=== PATIENT | female | born 1965 | race Caucasian/White ===

== ENCOUNTER 2021-04-08 16:36 | Emergency (ER) | payer MEDICAID ==
[~2021-04-08] VITALS: Ht 149.9 cm; Wt 68.9 kg
[~2021-04-08 16:36] MED LIST: ASCO1CAP75 PO; ASPI-1884 PO; CEPH250C16 PO; GABA300C PO; GLIP10TE PO; IBUP200C97 PO; LISI5TAB18 PO; METF850T PO; METO-485 PO; SIMV20TA1 PO; SITA50TA3 PO
--- NOTE | 2021-04-08 16:36 | NUR ---
Patient BIBA BLS, transferred to bed 10. RN evaluating the patient at bedside.
[2021-04-08 16:54] VITALS: BP 186/84
[2021-04-08] MEDS ORDERED: ONDANSETRON 4 MG/2 ML VIAL IVP ONE (17:00)
[2021-04-08] MEDS ORDERED: DICYCLOMINE HCL LIQUID 20 MG, ALUMINUM HYD/MAG/SIMETHICONE 30 ML, LIDOCAINE VISCOUS 2% ... PO ONE ×3 (17:00)
[2021-04-08] MEDS ORDERED: NACL 0.9% 1,000 ML IV ONE ×2 (17:00→18:10)
[2021-04-08] MEDS ORDERED: KETOROLAC 15 MG/ML VIAL IVP ONE (17:00)
--- NOTE | 2021-04-08 17:02 | NUR ---
56 Y/O FEMALE BIBA C/O EPIGASTRIC PAIN X2DAYS WITH DIARRHEA AND GUARDING ABDOMEN. PT STATES PAIN 9/10 DESCRIBES SHARP BOWEL SOUNDS ACTIVE X4. LAST BM 04/08/21. PT STATES SHE HAS NOT SEEN MD FOR PRESCRIPTIONS FOR DM AND TAKES A PILL SHE TOOK FROM SOMEONE SHE BUYS FROM IN A STORE, UNABLE TO RECALL NAME. PER EMT SBP IN 213, ON ARRIVAL BS 492. PMH: SUKHI RADFORD
[2021-04-08] MEDS ORDERED: LIDOCAINE VISCOUS 2% 20 ML UDC ONE (17:19)
[2021-04-08] MEDS ORDERED: ALUMINUM HYD/MAG/SIMETHICONE 30 ML UDC ONE (17:20)
[2021-04-08] MEDS ORDERED: DICYCLOMINE HCL LIQUID 10 MG/5 ML UDC ONE (17:20)
[2021-04-08 17:51] LABS: BASOPHILS % (AUTO) 0.6 % (0.0-2.0); EOSINOPHILS # (AUTO) 0.1 K/uL (0-0.4); HEMATOCRIT 29.9 % (36-48); HEMOGLOBIN 10.4 g/dL (12.0-16.0); LYMPHOCYTES # (AUTO) 2.6 K/uL (2.5-16.5); MEAN CORPUSCULAR HEMOGLOBIN 28 pg (27-31); MEAN CORPUSCULAR HGB CONC 35 g/dL (33-37); MEAN CORPUSCULAR VOLUME 80.1 fL (80-94); MONOCYTES # (AUTO) 0.4 K/uL (0.8-1.0); MONOCYTES % (AUTO) 5.6 % (1.7-9.3); NEUTROPHILS # (AUTO) 3.9 K/uL (1.8-7.7); NEUTROPHILS % (AUTO) 54.8 % (42.2-75.2); PLATELET COUNT (AUTO) 327 K/uL (140-450); RED BLOOD CELL COUNT(AUTO) 3.73 MIL/uL (4.20-5.40); RED CELL DISTRIBUTION WIDTH 12.7 % (11.6-13.7); WHITE BLOOD COUNT (AUTO) 7.1 K/uL (4.8-10.8)
--- NOTE | 2021-04-08 17:54 | NUR ---
Pt ambulated to restroom for UA collection.
--- NOTE | 2021-04-08 17:58 | NUR ---
maral.Pt ambulated to ER bed 10 with a steady
[2021-04-08 18:01] LABS: ALBUMIN 1.3 g/dL (3.4-5.0); CARBON DIOXIDE 25.1 mmol/L (21-32); CREATININE 1.6 mg/dL (0.6-1.3); POTASSIUM 4.1 mmol/L (3.5-5.1); TOTAL BILIRUBIN 0.2 mg/dL (0.0-1.0)
--- NOTE | 2021-04-08 18:13 | NUR ---
PT HOB ELEVATED, BP 208/81 MD MADE AWARE. WILL WAIT FOR ORDERS AND CONTINUE TO MONITOR.
--- NOTE | 2021-04-08 18:16 | NUR ---
US tech at bedside.
[2021-04-08 19:01] LABS: BILIRUBIN,URINE NEGATIVE (NEGATIVE); BLOOD, URINE 1+ (NEGATIVE); LEUKOCYTE ESTERASE ,URINE NEGATIVE (NEGATIVE); NITRITE, URINE NEGATIVE (NEGATIVE); UGLUCOSE 3+ (NEGATIVE)
[2021-04-08 19:06] LABS: APPEARANCE,URINE CLEAR (CLEAR)
[2021-04-08 19:07] LABS: COLOR,URINE YELLOW (YELLOW)
[2021-04-08 19:13] LABS: RBC,URINE 0-5 /HPF (0-5); WBC,URINE 0-5 /HPF (0-5)
--- NOTE | 2021-04-08 19:14 | NUR ---
REPORT GIVEN TO CARLENE ESTEBAN. TRANSFER OF CARE GIVEN
--- NOTE | 2021-04-08 19:35 | NUR ---
BP 201/92. Dr. Le made aware.
[2021-04-08] MEDS ORDERED: hydrALAZINE 20 MG/ML VIAL ONE (19:38)
[2021-04-08] MEDS ORDERED: hydrALAZINE 20 MG/ML VIAL IVP ONE (19:40)
[2021-04-08] MEDS ORDERED: METF-350 PO (20:13)
[2021-04-08] MEDS ORDERED: ONDA-24 SL (20:13)
[2021-04-08] MEDS ORDERED: AMLO-271 PO (20:13)
[2021-04-08 20:24] VITALS: BP 157/70
--- NOTE | 2021-04-08 20:28 | NUR ---
d/c with VSS. d/c education given. opportunity to ask questions given and answered. rx of zofra, metformin and zofran.
== END 2021-04-08 20:28 | disposition home or self-care (01) ==
LOC: MED 16:36
DX: R11.2 Nausea with vomiting, unspecified (principal); E11.65 Type 2 diabetes mellitus with hyperglycemia; I10 Essential (primary) hypertension; Z79.84 Long term (current) use of oral hypoglycemic drugs; Z79.82 Long term (current) use of aspirin; Z79.899 Other long term (current) drug therapy
CPT/HCPCS: 36415; 76705; 80053; 81001; 83690; 85025; 96361; 96374; 96375; 99284; J0360; J1885; J2405; J7030

== ENCOUNTER 2021-08-14 16:55 | Inpatient (IN) | payer MEDICAID ==
[~2021-08-14] VITALS: Ht 143.5 cm; Wt 55.8 kg
[2021-08-14] MEDS: NACL 0.9% 1,000 ML IV SCH (01:40)
[2021-08-14] MEDS: BLOOD GLUCOSE MONITORING 1 DEV DEV FS SCH (01:50)
[~2021-08-14 16:55] MED LIST changes: +AMLO-271 PO; -ASCO1CAP75 PO; +ASPI-1749 PO; -ASPI-1884 PO; -CEPH250C16 PO; -GABA300C PO; -GLIP10TE PO; -IBUP200C97 PO; -LISI5TAB18 PO; +METF-350 PO; -METF850T PO; -METO-485 PO; +ONDA-188 SL; -SIMV20TA1 PO; -SITA50TA3 PO
[2021-08-14 17:17] VITALS: BP 132/69
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
[2021-08-14] MEDS ORDERED: PIPERACILLIN/TAZOBACTAM 3.375 GM in DEXTROSE 5% 50 ML IV ONE (18:25)
[2021-08-14] MEDS ORDERED: KETOROLAC 15 MG/ML VIAL IVP ONE (18:25)
[2021-08-14] MEDS ORDERED: PIPERACILLIN/TAZOBACTAM 3.375 GM VIAL IV ONE (18:47)
[2021-08-14 18:48] LABS: BASOPHILS # (AUTO) 0.1 K/uL (0.00-0.22); BASOPHILS % (AUTO) 0.5 % (0.0-2.0); EOSINOPHILS # (AUTO) 0.1 K/uL (0-0.4); EOSINOPHILS % (AUTO) 0.8 % (0.0-4.0); HEMATOCRIT 24.6 % (36-48); HEMOGLOBIN 8.2 g/dL (12.0-16.0); LYMPHOCYTES # (AUTO) 1.7 K/uL (2.5-16.5); LYMPHOCYTES % (AUTO) 13.3 % (20.5-51.1); MEAN CORPUSCULAR HEMOGLOBIN 26 pg (27-31); MEAN CORPUSCULAR HGB CONC 34 g/dL (33-37); MEAN CORPUSCULAR VOLUME 77.7 fL (80-94); MONOCYTES # (AUTO) 0.7 K/uL (0.8-1.0); MONOCYTES % (AUTO) 5.4 % (1.7-9.3); NEUTROPHILS # (AUTO) 10.1 K/uL (1.8-7.7); PLATELET COUNT (AUTO) 459 K/uL (140-450); RED BLOOD CELL COUNT(AUTO) 3.16 MIL/uL (4.20-5.40); RED CELL DISTRIBUTION WIDTH 13.8 % (11.6-13.7); WHITE BLOOD COUNT (AUTO) 12.7 K/uL (4.8-10.8)
[2021-08-14 18:57] LABS: ANION GAP 11.8 (8-16); CARBON DIOXIDE 21.3 mmol/L (21-32); CREATININE 2.3 mg/dL (0.6-1.3); POTASSIUM 4.1 mmol/L (3.5-5.1)
--- NOTE | 2021-08-14 19:12 | NUR ---
CULTURE OF TOE COLLECTED AND WALKED TO LAB.
--- NOTE | 2021-08-14 19:29 | NUR ---
Pt report given to MARCELA BLAND. Transfer of care at this time.
--- NOTE | 2021-08-14 19:31 | NUR ---
REPORT GIVEN TO CARLENE MEDRANO FOR TRANSFER OF CARE
[2021-08-14] MEDS ORDERED: DEXTROSE 50% 50 ML SYR IVP PRN (20:10)
[2021-08-14] MEDS ORDERED: ACETAMINOPHEN 325 MG TAB PO PRN (20:10)
[2021-08-14] MEDS ORDERED: POTASSIUM CHLORIDE 10 MEQ TABER PO PRN (20:10)
[2021-08-14] MEDS ORDERED: DOCUSATE SODIUM 100 MG GELCAP PO PRN (20:10)
[2021-08-14] MEDS ORDERED: MAGNESIUM OXIDE 400 MG TAB PO PRN (20:10)
[2021-08-14] MEDS ORDERED: MORPHINE SULFATE 2 MG/ML SYR IVP PRN (20:10)
[2021-08-14] MEDS ORDERED: SODIUM PHOS / POTASSIUM PHOS 1 PKT PDR PO PRN (20:10)
[2021-08-14] MEDS ORDERED: HYDROcodone/APAP 5/325 MG 1 TAB TAB PO PRN (20:10)
[2021-08-14] MEDS ORDERED: ONDANSETRON 4 MG/2 ML VIAL IM/IVP PRN (20:10)
--- NOTE | 2021-08-14 20:20 | NUR ---
XRAY AT BEDSIDE.
[2021-08-14 20:45] LABS: MAGNESIUM 2.2 mg/dL (1.8-2.4); PHOSPHORUS 3.4 mg/dL (2.5-4.9)
[2021-08-15] MEDS: INSULIN LISPRO SLIDING SCALE 100 UNITS/ML VIAL SUBQ PRN ×4 (02:06→20:21)
[2021-08-15 05:33] LABS: BASOPHILS % (AUTO) 0.3 % (0.0-2.0); EOSINOPHILS # (AUTO) 0.2 K/uL (0-0.4); EOSINOPHILS % (AUTO) 1.9 % (0.0-4.0); HEMATOCRIT 22.1 % (36-48); HEMOGLOBIN 7.6 g/dL (12.0-16.0); LYMPHOCYTES # (AUTO) 2.6 K/uL (2.5-16.5); LYMPHOCYTES % (AUTO) 25.6 % (20.5-51.1); MEAN CORPUSCULAR HEMOGLOBIN 27 pg (27-31); MEAN CORPUSCULAR HGB CONC 35 g/dL (33-37); MEAN CORPUSCULAR VOLUME 78.2 fL (80-94); MONOCYTES # (AUTO) 0.9 K/uL (0.8-1.0); MONOCYTES % (AUTO) 8.9 % (1.7-9.3); NEUTROPHILS # (AUTO) 6.5 K/uL (1.8-7.7); NEUTROPHILS % (AUTO) 63.3 % (42.2-75.2); PLATELET COUNT (AUTO) 397 K/uL (140-450); RED BLOOD CELL COUNT(AUTO) 2.83 MIL/uL (4.20-5.40); RED CELL DISTRIBUTION WIDTH 13.8 % (11.6-13.7); WHITE BLOOD COUNT (AUTO) 10.2 K/uL (4.8-10.8)
[2021-08-15 05:38] LABS: ANION GAP 12.6 (8-16); CARBON DIOXIDE 20.5 mmol/L (21-32); CREATININE 2.2 mg/dL (0.6-1.3); POTASSIUM 4.1 mmol/L (3.5-5.1)
--- NOTE | 2021-08-15 06:50 | NUR ---
RECEIVED REPORT FROM KAREN CONCEPCION AND MARCELA JONESN, TRANSFER OF CARE AT THIS TIME
--- NOTE | 2021-08-15 07:00 | NUR ---
PT RESTING IN BED WITH EVEN AND UNLABORED RESPIRATIONS. A/O X4/GCS 15. PT DENIES PAIN AT THIS TIME. DENIES NUMBNESS. + FULL SENSATION. PT REPORTS PERIODS OF TINGLING. PT ON DAIRY DEPARTMENT MANAGER, VSS.
[2021-08-15] MEDS: BLOOD GLUCOSE MONITORING 1 DEV DEV FS SCH ×4 (07:20→20:21)
--- NOTE | 2021-08-15 08:16 | NUR ---
REPORT GIVEN TO CARY RN FOR ADMISSION TO [facility], ETA 20 MINS.
[2021-08-15] MEDS ORDERED: hydrALAZINE 25 MG TAB PO PRN (08:35)
--- NOTE | 2021-08-15 08:48 | NUR ---
Patient will be admitted to care of [facility]. Admited to TELEMETRY. Will go to room 125B. Belongings list completed. Report to CARY CONCEPCION.
[2021-08-15] MEDS ORDERED: amLODIPine 5 MG TAB PO SCH (09:00)
[2021-08-15] MEDS: PANTOPRAZOLE 40 MG TABEC PO SCH (09:18)
[2021-08-15] MEDS: ASPIRIN 81 MG TAB.CHEW PO SCH (09:19)
[2021-08-15] MEDS: NACL 0.9% 1,000 ML IV SCH ×2 (09:19→17:57)
--- NOTE | 2021-08-15 09:25 | NUR ---
SWETHAVE PATIENT FROM ER, PT WAS ADMITTED DUE TO RIGHT FOOT PAIN, DX WIT R FOOT CELLULITIS DUE TO DIABETES, PT IS AMBULATORY AX4 ON ROOM AIR, S.R PATIENT HAS AN IV ON RIGHT AC 20G INTACT PATENT ASYMPTOMATIC, RUNNING NS 125ML/H PATIENT DENIES PAIN, ATE BREAKFAST, BREATHING EVEN UNLABORED, GOT MORNING MEDICATION TOLERATED WELL, NO SOD NOTED, PT VITAL SIGNS 160/76 HERAT RATE 100 SAT 98% BREATHING 20 .PATIENT HAS DIABETIC ULCER ClOSED ON HER RIGHT FOOT, ALL SAFETY MEASURES ON PLACE CALLS LIGHT WITHIN REACH
[2021-08-15 09:43] LABS: APPEARANCE,URINE CLEAR (CLEAR); COLOR,URINE YELLOW (YELLOW)
[2021-08-15 09:44] LABS: BILIRUBIN,URINE NEGATIVE (NEGATIVE); BLOOD, URINE NEGATIVE (NEGATIVE); NITRITE, URINE NEGATIVE (NEGATIVE); UGLUCOSE NEGATIVE (NEGATIVE)
[2021-08-15 09:46] LABS: RBC,URINE 0-5 /HPF (0-5)
[2021-08-15 09:48] LABS: LEUKOCYTE ESTERASE ,URINE 1+ (NEGATIVE)
[2021-08-15 10:52] VITALS: BP 160/76
--- NOTE | 2021-08-15 12:20 | NUR ---
PT IN BED NO COMPLAINS NO SOD NOTED, ALL SAFETY MEASURES ON PLACE CALLS LIGHT WITHIN REACH
[2021-08-15 12:31] LABS: CREATININE,URINE RANDOM 36 mg/dL (30-125); URINE SODIUM, RANDOM 53 mmol/l (40-220)
--- NOTE | 2021-08-15 12:56 | NUR ---
DC PLANNIN YRS OLD FEMALE PATIENT WAS ADMITTED FROM HOME WITH A DX OF RIGHT FOOT CELLULITIS, DM ULCER. PATIENT HAS A HX OF DM AND HTN. X-RAY RT TOE NO CORTICAL EROSION ARE SEEN SUGGESTED ADVANCED OSTEOMYELITIS. NO DVT, RENAL US SHOWED NO HYDRONEPHROSIS. ADMINISTERED IVF, IV ABX ZOSYN AND CONTINUED HOME MEDS. CONSULTED WITH DR SANDERS PODIATRY AND SORT MANAGER. DC PLAN TO GO HOME WHEN STABLE CM TO FOLLOW
--- NOTE | 2021-08-15 14:15 | NUR ---
PT IN BED NO COMPLAINS NO SOD NOTED, ALL SAFETY MEASURES ON PLACE CALLS LIGHT WITHIN REACH
[2021-08-15 16:00] VITALS: BP 158/71
--- NOTE | 2021-08-15 16:00 | NUR ---
PT IN BED NO COMPLAINS NO SOD NOTED, ALL SAFETY MEASURES ON PLACE CALLS LIGHT WITHI REACH
--- NOTE | 2021-08-15 16:44 | NUR ---
PATIENT HAS BEEN SCREENED AND CATEGORIZED MODERATE NUTRITION RISK. PATIENT WILL BE SEEN WITHIN 3-5 DAYS OF ADMISSION. 08/17/21 08/19/[address]
--- NOTE | 2021-08-15 17:50 | NUR ---
PT IN BED NO COMPLAINS NO SOD NOTED, ALL SAFETY MEASURES ON PLACE CALLS LIGHT WITHI REAC
--- NOTE | 2021-08-15 19:32 | NUR ---
FULL BEDSIDE REPORT GIVEN TO DIRECTOR INSTRUCTIONAL MATERIAL NURSE
--- NOTE | 2021-08-15 19:35 | NUR ---
RECEIVED PT SITTING ON SIDE OF BED EATING DINNER, AAOX4, ABLE TO MAKE NEEDS KNOWN, DENIES ANY PAIN, IVF INFUSING WELL, DIABETIC ULCER TO RT FOURTH TOE, [place], NO DRAINAGE NOTED, PLAN OF CARE DISCUSSED, SAFETY MEASURES IN PLACE, CALL LIGHT WITHIN REACH.
[2021-08-15 20:00] VITALS: BP 135/78
--- NOTE | 2021-08-15 20:30 | NUR ---
PT AMBULATED TO BR WITH STEADY GAIT, VOIDED FREELY, BLOOD SUGAR CHECKED DONE WITH 214 RESULT, COVERAGE GIVEN, BEDTIME SNACK PROVIDED, ALL NEEDS ATTENDED.
--- NOTE | 2021-08-16 03:50 | NUR ---
PT SLEEPING, EASILY AROUSABLE, VITAL SIGNS STABLE, DENIES ANY PAIN, IVF INFUSING WELL, MONITORED CLOSELY.
[2021-08-16] MEDS: NACL 0.9% 1,000 ML IV SCH (03:53)
[2021-08-16 04:00] VITALS: BP 134/60
--- NOTE | 2021-08-16 06:30 | NUR ---
BLOOD SUGAR CHECKED WITH 123 RESULT, DENIES ANY PAIN, MONITORED CLOSELY.
[2021-08-16 07:03] LABS: BASOPHILS % (AUTO) 0.4 % (0.0-2.0); EOSINOPHILS # (AUTO) 0.2 K/uL (0-0.4); EOSINOPHILS % (AUTO) 1.4 % (0.0-4.0); HEMATOCRIT 21.1 % (36-48); LYMPHOCYTES # (AUTO) 2.6 K/uL (2.5-16.5); LYMPHOCYTES % (AUTO) 20.7 % (20.5-51.1); MEAN CORPUSCULAR HEMOGLOBIN 26 pg (27-31); MEAN CORPUSCULAR HGB CONC 33 g/dL (33-37); MEAN CORPUSCULAR VOLUME 78.7 fL (80-94); MONOCYTES # (AUTO) 1.1 K/uL (0.8-1.0); MONOCYTES % (AUTO) 8.7 % (1.7-9.3); NEUTROPHILS # (AUTO) 8.7 K/uL (1.8-7.7); NEUTROPHILS % (AUTO) 68.8 % (42.2-75.2); PLATELET COUNT (AUTO) 387 K/uL (140-450); RED BLOOD CELL COUNT(AUTO) 2.68 MIL/uL (4.20-5.40); RED CELL DISTRIBUTION WIDTH 13.9 % (11.6-13.7); WHITE BLOOD COUNT (AUTO) 12.6 K/uL (4.8-10.8)
--- NOTE | 2021-08-16 07:25 | NUR ---
RECEIVED CALL FROM LAB. HEMOGLOBIN AT [address] ISAIAS DIETZ. DR ORDERED [address] ORDER, ONLY TRANSFUSE 1 AND KEEP OTHER ON HOLD. CONSENT FORM PRINTED OUT AND IN CHART.
[2021-08-16 07:26] LABS: ANION GAP 12.9 (8-16); CARBON DIOXIDE 18.6 mmol/L (21-32); CREATININE 2.4 mg/dL (0.6-1.3); POTASSIUM 4.5 mmol/L (3.5-5.1)
[2021-08-16] MEDS: BLOOD GLUCOSE MONITORING 1 DEV DEV FS SCH ×4 (07:35→21:45)
--- NOTE | 2021-08-16 07:40 | NUR ---
PT AWAKE, NO SIGNS OF DISTRESS, BEDSIDE REPORT GIVEN TO EDWINA MAZARIEGOS FOR CONTINUITY OF CARE.
--- NOTE | 2021-08-16 07:41 | NUR ---
RECEIVED REPORT FROM UNDERWRITING SUPPORT SPECIALIST NURSE FOR CONTINUITY OF CARE. PATIENT IN BED AT THIS TIME. RESPIRATIONS ARE EVEN AND UNLABORED. NO SIGNS OF DISTRESS NOTED. WILL CONTINUE TO MONITOR. ALL SAFETY MEASURES IN PLACE. CALL LIGHT WITHIN REACH.
[2021-08-16] MEDS: PANTOPRAZOLE 40 MG TABEC PO SCH (08:45)
[2021-08-16] MEDS: ASPIRIN 81 MG TAB.CHEW PO SCH (08:52)
[2021-08-16] MEDS: SODIUM FERRIC GLUCONATE 125 MG in NACL 0.9% 100 ML IV SCH (09:00)
[2021-08-16] MEDS: NIFEdipine 30 MG TABER PO SCH (09:00)
--- NOTE | 2021-08-16 10:40 | NUR ---
FERRLECIT 125MH IN NACL STARTED. WILL MONITOR FOR ADVERSE EFFECTS.
--- NOTE | 2021-08-16 10:54 | NUR ---
15 MIN INTO FERRLECIT INFUSION, NO ADVERSE EFFECTS NOTED. NO COMPLAINTS OF PAIN OR DISCOMFORT. WILL CONTINUE TO MONITOR.
--- NOTE | 2021-08-16 11:09 | NUR ---
30 MINUTES INTO FERRLECIT INFUSION. NO ADVERSE EFFECTS NOTED. NO COMPLAINTS OF PAIN OR DISCOMFORT. WILL CONTINUE TO MONITOR.
--- NOTE | 2021-08-16 11:24 | NUR ---
45 MINUTES INTO FERRLECIT INFUSION. NO ADVERSE EFFECTS NOTED. NO COMPLAINTS OF PAIN OR DISCOMFORT. DR. ISAIAS DIETZ AT BEDSIDE. INFORMED PATIENT ABOUT BLOOD TRANSFUSION AND REASON TRANSFUSION IS NEEDED. PATIENT STATED AN UNDERSTANDING OF ALL INFORMATION PROVIDED. WILL CONTINUE TO MONITOR.
--- NOTE | 2021-08-16 11:39 | NUR ---
JOSE RIT COMPLETED. NO ADVERSE AFFECTS NOTED. NO COMPLAINTS OF PAIN OR DISCOMFORT. WILL CONTINUE TO MONITOR.
[2021-08-16 12:00] VITALS: BP 136/60
--- NOTE | 2021-08-16 14:08 | NUR ---
08/16/21 RD INITIAL ASSESSMENT COMPLETED PLEASE REFER TO NUTRITION ASSESSMENT UNDER CARE ACTIVITY FOR ESTIMATED NUTRITIONAL NEEDS. RD RECOMMENDATIONS: 1. RECOMMEND ADDING LOW NA DIET [facility] 60 GM DIET D/T PT WITH HTN AND ELEVATED BP. 2. DM DIET EDUCATION PROVIDED TO PT. 3. RD WILL F/U 7 DAYS; LOW RISK. KELLEY SINGH RD
--- NOTE | 2021-08-16 14:20 | NUR ---
BLOOD TRANSFUSION STARTED. INITIAL VS: 140/80, 89, RR 20, O2 99%, TEMP: 97.8. WILL CONTINUE TO MONITOR.
--- NOTE | 2021-08-16 14:35 | NUR ---
15 MIN AFTER TRANSFUSION START. NO ADVERSE REACTIONS NOTED.NO COMPLAINTS OF PAIN OR DISCOMFORT. VS: 152/75, 97.8, 89, RR 20, O2 99%. WILL CONTINUE TO MONITOR.
--- NOTE | 2021-08-16 15:05 | NUR ---
30 MIN AFTER START OF TRANSFUSION. NO COMPLAINTS OF PAIN OR DISCOMFORT. NO ADVERSE REACTIONS NOTED. VS: 150/82, RR18, HR 87, TEMP 98.0, O2 SAT 98%. WILL CONTINUE TO MONITOR.
--- NOTE | 2021-08-16 16:05 | NUR ---
1 HOUR AFTER TRANSFUSION COMPLETE. NO COMPLAINTS OF PAIN OR DISCOMFORT. NO ADVERSE REACTIONS NOTED. WILL CONTINUE TO MONITOR.
[2021-08-16] MEDS ORDERED: VANCOMYCIN PER PHARMACY MC PRN (16:15)
[2021-08-16] MEDS ORDERED: VANCOMYCIN HCL 750 MG in DEXTROSE 5% 250 ML IV SCH (17:00)
[2021-08-16] MEDS: INSULIN LISPRO SLIDING SCALE 100 UNITS/ML VIAL SUBQ PRN (17:28)
--- NOTE | 2021-08-16 18:00 | NUR ---
ORDER PUT IN FOR ZOSYN. ZOSYN NOT IN MED ROOM. ATTEMPTED TO CALL PHARMACY, NO ANSWER. WILL ENDORSE TO CORDWOOD CUTTER.
--- NOTE | 2021-08-16 19:10 | NUR ---
ENDORSED PATIENT TO CONTACT ACID PLANT OPERATOR HELPER NURSE FOR CONTINUITY OF CARE. PATIENT STABLE.
--- NOTE | 2021-08-16 19:11 | NUR ---
RECEIVED ENDORSEMENT FROM MORNING SHIFT FOR CONTINUITY OF CARE. PATIENT STABLE AND RESTING IN BED. A&O X4. RESPIRATIONS EVEN AND UNLABORED. DENIES PAIN AT THIS TIME. ON RA WITH AN O2 SAT OF 98%. NO APPARENT S/SX OF ACUTE RESPIRATORY DISTRESS. IV SITE ON RIGHT AC 20G PATENT/INTACT WITH NS INFUSING AT 100 ML/HR. PATIENT IS MONITORED FOR S/P PRBC TRANSFUSION. POC AND WHITE BOARD COMMUNICATION UPDATED. BED IN LOW/LOCKED POSITION. ALL SAFETY MEASURES IN PLACE. CALL LIGHT WITHIN REACH. WILL CONTINUE TO MONITOR.
[2021-08-16 20:00] VITALS: BP 131/75
[2021-08-16] MEDS ORDERED: VANCOMYCIN 1,000 MG VIAL ONE (20:17)
--- NOTE | 2021-08-16 20:47 | NUR ---
VANCOMYCIN 750 MG. IVPB STARTED BY CHARGE NURSE JASKARAN. TEACHINGS GIVEN ON THE IMPORTANCE OF ANTIBIOTICS IN TREATING INFECTION. WILL MONITOR FOR ANY ALLERGIC REACTION.
--- NOTE | 2021-08-16 21:11 | NUR ---
CHECKED PATIENT'S BLOOD SUGAR. INSULIN COVERAGE NOT NEEDED PER MD ORDER. DENIES PAIN AT THIS TIME. RESPIRATIONS EVEN AND UNLABORED. NO APPARENT S/SX OF ACUTE RESPIRATORY DISTRESS. WHITE COMMUNICATION BOARD UPDATED. ALL SAFETY MEASURES IN PLACE. CALL LIGHT WITHIN REACH. WILL CONTINUE TO MONITOR.
--- NOTE | 2021-08-16 22:00 | NUR ---
RECEIVED PHONE CALL FROM ADMISSION REGARDING PATIENT'S CELL PHONE DITCHER OPERATOR. PICKED UP FROM ADMISSION AND DELIVERED TO PATIENT'S ROOM. AROUSED PATIENT AND IS AWARE OF DITCHER OPERATOR.
--- NOTE | 2021-08-16 22:38 | NUR ---
Patient's Plan of Care was discussed and reviewed with FORKLIFT OPERATOR: CAESAR VILLA
[2021-08-16] MEDS ORDERED: PIPERACILLIN/TAZOBACTAM 2.25 GM VIAL IV ONE (23:12)
[2021-08-16] MEDS: PIPERACILLIN/TAZOBACTAM 2.25 GM in DEXTROSE 5% 50 ML IV SCH (23:55)
--- NOTE | 2021-08-16 23:55 | NUR ---
IV ZOSYN ADMINISTERED BY CHARGE NURSE JASKARAN AT 2355 INSTEAD OF 08/17/21 0000.
--- NOTE | 2021-08-17 | NUR ---
CHECKED PATIENT. STABLE AND SLEEPING IN SUPINE POSITION. RESPIRATIONS EVEN AND UNLABORED. NO APPARENT S/SX OF ACUTE RESPIRATORY DISTRESS. WHITE COMMUNICATION BOARD UPDATED. ALL SAFETY MEASURES IN PLACE. CALL LIGHT WITHIN REACH. WILL CONTINUE TO MONITOR.
--- NOTE | 2021-08-17 02:00 | NUR ---
CHECKED PATIENT. STABLE AND SLEEPING IN RIGHT SIDE. RESPIRATIONS EVEN AND UNLABORED. NO APPARENT S/SX OF ACUTE RESPIRATORY DISTRESS. WHITE COMMUNICATION BOARD UPDATED. ALL SAFETY MEASURES IN PLACE. CALL LIGHT WITHIN REACH. WILL CONTINUE TO MONITOR.
[2021-08-17 02:50] LABS: BASOPHILS % (AUTO) 0.4 % (0.0-2.0); EOSINOPHILS # (AUTO) 0.2 K/uL (0-0.4); EOSINOPHILS % (AUTO) 2.1 % (0.0-4.0); HEMATOCRIT 23.9 % (36-48); HEMOGLOBIN 8.2 g/dL (12.0-16.0); MEAN CORPUSCULAR HEMOGLOBIN 27 pg (27-31); MEAN CORPUSCULAR HGB CONC 34 g/dL (33-37); MEAN CORPUSCULAR VOLUME 79.3 fL (80-94); MONOCYTES % (AUTO) 8.5 % (1.7-9.3); NEUTROPHILS # (AUTO) 8.1 K/uL (1.8-7.7); PLATELET COUNT (AUTO) 368 K/uL (140-450); RED BLOOD CELL COUNT(AUTO) 3.02 MIL/uL (4.20-5.40); RED CELL DISTRIBUTION WIDTH 14.8 % (11.6-13.7); WHITE BLOOD COUNT (AUTO) 11.3 K/uL (4.8-10.8)
[2021-08-17 02:57] LABS: CARBON DIOXIDE 19.1 mmol/L (21-32); CREATININE 2.3 mg/dL (0.6-1.3); POTASSIUM 4.1 mmol/L (3.5-5.1)
--- NOTE | 2021-08-17 03:23 | NUR ---
INFORMED DR. DIETZ, PATIENT HGB 8.2 AFTER UNIT OF BLOOD TRANSFUSED. INQUIRED IF WE HAVE TO GIVE SECOND UNIT. WILL WAIT FOR RESPONSE.
[2021-08-17 04:00] VITALS: BP 125/53
--- NOTE | 2021-08-17 04:00 | NUR ---
ASSESSED PATIENT'S IV SITE ON RIGHT AC. ABLE TO FLUSH BUT SLIGHT SWELLING NOTED. PATIENT C/O OF MILD DISCOMFORT AROUND IV SITE. INSERTED IV 22G ON LEFT FOREARM. TOLERATED WELL. PATIENT DENIES PAIN AT THIS TIME. RESPIRATIONS EVEN AND UNLABORED. NO APPARENT S/SX OF ACUTE RESPIRATORY DISTRESS. WHITE COMMUNICATION BOARD UPDATED. ALL SAFETY MEASURES IN PLACE. CALL LIGHT WITHIN REACH. WILL CONTINUE TO MONITOR.
[2021-08-17] MEDS ORDERED: PIPERACILLIN/TAZOBACTAM 2.25 GM VIAL IV ONE (05:31)
[2021-08-17] MEDS: PIPERACILLIN/TAZOBACTAM 2.25 GM in DEXTROSE 5% 50 ML IV SCH ×5 (05:54→17:32)
--- NOTE | 2021-08-17 06:00 | NUR ---
CHECKED PATIENT. STABLE AND SLEEPING COMFORTABLY IN SUPINE POSITION. RESPIRATIONS EVEN AND UNLABORED. NO APPARENT S/SX OF ACUTE RESPIRATORY DISTRESS. WHITE COMMUNICATION BOARD UPDATED. ALL SAFETY MEASURES IN PLACE. CALL LIGHT WITHIN REACH. WILL CONTINUE TO MONITOR.
--- NOTE | 2021-08-17 06:13 | NUR ---
DR. DIETZ MESSAGED BACK TO HOLD SECOND UNIT OF BLOOD FOR TRANSFUSION.
[2021-08-17] MEDS: BLOOD GLUCOSE MONITORING 1 DEV DEV FS SCH ×4 (06:42→21:09)
--- NOTE | 2021-08-17 07:25 | NUR ---
ENDORSED TO AM SHIFT FOR CONTINUITY OF CARE. PATIENT IS STABLE.
--- NOTE | 2021-08-17 07:28 | NUR ---
RECEIVED REPORT FROM NIGHT NURSE PT IS AAOX4 ON ROOM AIR,AMBULATORY AND IV INTACT SALINE LOCK, WITH RIGHT LE WOUND S/P NON EXCISIONAL DEBRIDEMENT ON 08/16. DRESSING CHANED BY RELATIONSHIP CONSULTANT, S/P PRBC 08/16. WILL CONTINUE TO MONITOR.
[2021-08-17 08:00] VITALS: BP 170/71
[2021-08-17] MEDS: SODIUM FERRIC GLUCONATE 125 MG in NACL 0.9% 100 ML IV SCH (09:08)
[2021-08-17] MEDS: NIFEdipine 30 MG TABER PO SCH (09:09)
[2021-08-17] MEDS: PANTOPRAZOLE 40 MG TABEC PO SCH (09:09)
[2021-08-17] MEDS: ASPIRIN 81 MG TAB.CHEW PO SCH (09:09)
--- NOTE | 2021-08-17 09:19 | NUR ---
SCHEDULED MEDICATION GIVEN CHECK VITAL SIGNS BP170/71 OR 85. NO DISTRESS NOTED.SAFETY MEASURES IN PLACE AND CALL LIGHT WITHIN REACH. WILL CONTINUE TO MONITOR.
--- NOTE | 2021-08-17 11:33 | NUR ---
BLOOD SUGAR 142 MF/DL NO INSULIN COVERAGE GIVEN AND IV ZOSYN 2.25 MG INFUSING WELL [id number] ANY PAIN. WILL CONTINUE TO MONITOR.
[2021-08-17 16:00] VITALS: BP 101/40
[2021-08-17] MEDS: INSULIN LISPRO SLIDING SCALE 100 UNITS/ML VIAL SUBQ PRN (16:15)
--- NOTE | 2021-08-17 16:17 | NUR ---
BLOOD SUGAR 207 MG/DL INSULIN COVERAGE OF 4 UNITS.
--- NOTE | 2021-08-17 17:59 | NUR ---
IV ANTIBIOTIC GIVEN AND INFUSING WELL PT RESTING NO DISTRESS NOTED.
--- NOTE | 2021-08-17 19:18 | NUR ---
ENDORSED TO NIGHT NURSE FOR CONTINUITY OF CARE.PT STABLE
--- NOTE | 2021-08-17 19:19 | NUR ---
RECEIVED ENDORSEMENT FROM MORNING SHIFT FOR CONTINUITY OF CARE. PATIENT STABLE AND RESTING IN BED. A&O X4. VERBALLY RESPONSIVE AND ABLE TO COMMUNICATE NEEDS. RESPIRATIONS EVEN AND UNLABORED. DENIES PAIN AT THIS TIME. ON RA WITH AN O2 SAT OF 98%. NO APPARENT S/SX OF ACUTE RESPIRATORY DISTRESS. IV SITE ON LEFT FA 22G PATENT/INTACT. PATIENT IS MONITORED FOR S/P PRBC TRANSFUSION. POC AND WHITE BOARD COMMUNICATION UPDATED. BED IN LOW/LOCKED POSITION. ALL SAFETY MEASURES IN PLACE. CALL LIGHT WITHIN REACH. WILL CONTINUE TO MONITOR.
--- NOTE | 2021-08-17 20:00 | NUR ---
PATIENT'S PLAN OF CARE WAS DISCUSSED AND REVIEWED WITH JAR FILLER: CAESAR VILLA
--- NOTE | 2021-08-17 21:09 | NUR ---
CHECKED PATIENT'S BLOOD SUGAR. INSULIN COVERAGE NOT NEEDED PER MD ORDER. DENIES PAIN AT THIS TIME. NO APPARENT S/SX OF ACUTE RESPIRATORY DISTRESS. PROVIDED DIABETIC SNACK. WHITE BOARD COMMUNICATION UPDATED. ALL SAFETY MEASURES IN PLACE. CALL LIGHT WITHIN REACH. WILL CONTINUE TO MONITOR.
--- NOTE | 2021-08-17 23:09 | NUR ---
CHECKED PATIENT. STABLE AND SLEEPING COMFORTABLY IN RIGHT LYING SIDE POSITION. RESPIRATIONS EVEN AND UNLABORED. NO APPARENT S/SX OF ACUTE RESPIRATORY DISTRESS. WHITE COMMUNICATION BOARD UPDATED. ALL SAFETY MEASURES IN PLACE. CALL LIGHT WITHIN REACH. WILL CONTINUE TO MONITOR.
[2021-08-18] MEDS: PIPERACILLIN/TAZOBACTAM 2.25 GM in DEXTROSE 5% 50 ML IV SCH ×3 (00:41→12:57)
--- NOTE | 2021-08-18 01:09 | NUR ---
ROUNDED ON PATIENT. STABLE AND SLEEPING COMFORTABLY IN LEFT SIDE-LYING POSITION. RESPIRATIONS EVEN AND UNLABORED. NO APPARENT S/SX OF ACUTE RESPIRATORY DISTRESS. WHITE COMMUNICATION BOARD UPDATED. ALL SAFETY MEASURES IN PLACE. CALL LIGHT WITHIN REACH. WILL CONTINUE TO MONITOR.
--- NOTE | 2021-08-18 03:09 | NUR ---
MEASURED, DOCUMENTED, AND TOOK PHOTOS OF PATIENT'S RIGHT FOOT DIABETIC ULCER PER WOUND ASSESSMENT ROUTINE. DID NOT TAKE OUT BANDAGE PER MD ORDER. DENIES PAIN AT THIS TIME. RESPIRATIONS EVEN AND UNLABORED. NO APPARENT S/SX OF ACUTE RESPIRATORY DISTRESS. WHITE BOARD COMMUNICATION UPDATED. ALL SAFETY MEASURES IN PLACE. CALL LIGHT WITHIN REACH. WILL CONTINUE TO MONITOR.
[2021-08-18 04:00] VITALS: BP 154/63
[2021-08-18 06:18] LABS: ANION GAP 15.3 (8-16); BASOPHILS % (AUTO) 0.2 % (0.0-2.0); CREATININE 2.7 mg/dL (0.6-1.3); EOSINOPHILS # (AUTO) 0.4 K/uL (0-0.4); EOSINOPHILS % (AUTO) 4.3 % (0.0-4.0); HEMATOCRIT 23.8 % (36-48); HEMOGLOBIN 8.1 g/dL (12.0-16.0); LYMPHOCYTES # (AUTO) 2.1 K/uL (2.5-16.5); LYMPHOCYTES % (AUTO) 20.8 % (20.5-51.1); MEAN CORPUSCULAR HEMOGLOBIN 27 pg (27-31); MEAN CORPUSCULAR HGB CONC 34 g/dL (33-37); MEAN CORPUSCULAR VOLUME 80.4 fL (80-94); MONOCYTES # (AUTO) 0.9 K/uL (0.8-1.0); MONOCYTES % (AUTO) 8.7 % (1.7-9.3); NEUTROPHILS # (AUTO) 6.6 K/uL (1.8-7.7); PLATELET COUNT (AUTO) 401 K/uL (140-450); POTASSIUM 4.3 mmol/L (3.5-5.1); RED BLOOD CELL COUNT(AUTO) 2.97 MIL/uL (4.20-5.40); RED CELL DISTRIBUTION WIDTH 14.5 % (11.6-13.7)
--- NOTE | 2021-08-18 06:38 | NUR ---
CONTACTED DR. HESTER REGARDING RENEWING FERRLECIT 125MG. RENEWAL NOT NEEDED PER MD ORDER.
[2021-08-18] MEDS: BLOOD GLUCOSE MONITORING 1 DEV DEV FS SCH ×2 (06:49→12:24)
--- NOTE | 2021-08-18 07:20 | NUR ---
RECEIVED REPORT FROM REAL ESTATE CLERK NURSE FOR CONTINUITY OF CARE. PT STABLE. NO S/S OF DISTRESS. BREATHING SYMMETRICAL. IV FLUIDS RUNNING PER MD ORDER. CALL LIGHT IN REACH. ALL SAFETY MEASURES IN PLACE
--- NOTE | 2021-08-18 07:25 | NUR ---
ENDORSED PATIENT TO MORNING SHIFT FOR CONTINUITY OF CARE. PATIENT IS STABLE.
[2021-08-18] MEDS ORDERED: FERROUS SULFATE 325 MG TABEC PO SCH (08:00)
[2021-08-18] MEDS: PANTOPRAZOLE 40 MG TABEC PO SCH (08:57)
[2021-08-18] MEDS: NIFEdipine 30 MG TABER PO SCH (08:57)
[2021-08-18] MEDS: ASPIRIN 81 MG TAB.CHEW PO SCH (08:57)
[2021-08-18] MEDS ORDERED: VANCOMYCIN 750 MG in DEXTROSE 5% 250 ML IV SCH (09:00)
--- NOTE | 2021-08-18 10:19 | NUR ---
PT RESTING IN BED. WOUND CARE NURSE AT BEDSIDE. WOUND CARE ADMINISTERED. PT TOLERATED WELL. PT STABLE. NO S/S OF DISTRESS. BREATHING SYMMETRICAL. IV FLUIDS RUNNING PER MD ORDER. CALL LIGHT IN REACH. ALL SAFETY MEASURES IN PLACE
--- NOTE | 2021-08-18 10:21 | NUR ---
Wound care evaluation note: Wound assessment done to right dorsal foot to 4th digit toe s/p debridement wound size 5x2x.3cm, Wound bed red granulation tissue, red and moist, wound edge flat, tendon to 4th digit is exposed,shining, moist. pain 0/10. poc discussed with pt. pt. verbalizes understanding with Ashia CONCEPCION translate in Solomon Islander. Will continue to follow podiatry order.
[2021-08-18] MEDS ORDERED: SULF-58 PO (10:36)
[2021-08-18] MEDS ORDERED: GLIP5TAB13 PO (10:36)
[2021-08-18] MEDS ORDERED: ATOR40TA PO (10:39)
--- NOTE | 2021-08-18 12:30 | NUR ---
PT EDUCATED ON DISCHARGE. PT VERBALIZED UNDERSTANDING AND SIGNED. PT EATING LUNCH. DAUGHTER TO COLLISION MECHANIC PT AT 1400. CALL LIGHT IN REACH. ALL SAFETY MEASURES IN PLACE.
--- NOTE | 2021-08-18 13:30 | NUR ---
PT DISCHARGED HOME WITH FAMILY. ID BAND REMOVED. IV REMOVED, CANULA INTACT. PT STABLE. PT REFUSED DISCHARGE WOUND PHOTO. PT WAS SEEN BY WOUND NURSE AND WAS ALREADY BANDAGED. ALL SAFETY MEASURES IN PLACE. ALL PERSONAL BELONGING IN POSSESSION
[2021-08-19] MEDS ORDERED: GAUZE TP SCH (13:00)
== END 2021-08-18 13:30 | disposition home or self-care (01) | DRG 710 ==
LOC: MED 16:55 → MTU 20:13 → MMU 08-15 05:36
PROVIDERS: ADMIT Hospitalist; ATTEND Hospitalist
PROC: 30233N1 Transfusion of Nonautologous Red Blood Cells into Peripheral Vein, Percutaneous Approach (ICD-10-PCS; principal; 2021-08-16)
PROC: 0JDQ0ZZ Extraction of Right Foot Subcutaneous Tissue and Fascia, Open Approach (ICD-10-PCS; 2021-08-16)
DX: A41.9 Sepsis, unspecified organism (principal); N17.0 Acute kidney failure with tubular necrosis; L03.115 Cellulitis of right lower limb; L97.519 Non-pressure chronic ulcer of other part of right foot with unspecified severity; E87.1 Hypo-osmolality and hyponatremia; E83.51 Hypocalcemia; E11.22 Type 2 diabetes mellitus with diabetic chronic kidney disease; E11.65 Type 2 diabetes mellitus with hyperglycemia; N18.4 Chronic kidney disease, stage 4 (severe); I13.10 Hypertensive heart and chronic kidney disease without heart failure, with stage 1 through stage 4 chronic kidney disease, or unspecified chronic kidney disease; D50.9 Iron deficiency anemia, unspecified; E11.51 Type 2 diabetes mellitus with diabetic peripheral angiopathy without gangrene; E11.621 Type 2 diabetes mellitus with foot ulcer; N39.0 Urinary tract infection, site not specified; Z79.82 Long term (current) use of aspirin; Z79.84 Long term (current) use of oral hypoglycemic drugs; Z79.899 Other long term (current) drug therapy; Z56.0 Unemployment, unspecified
CPT/HCPCS: 36415; 73630; 73660; 76770; 80048; 80202; 81001; 82553; 82570; 82607; 82728; 82746; 82948; 83036; 83540; 83605; 83735; 84100; 84300; 85025; 85045; 85651; 86140; 86886; 86900; 86901; 86920; 87040; 87070; 87081; 87086; 87186; 93925; 93970; 96365; 96375; 99285; J1885; J2543; J2916; J3370; J7060; P9016; Q0092

== ENCOUNTER 2021-08-22 04:10 | Inpatient (IN) | payer MEDICAID, SELFPAY ==
[~2021-08-22] VITALS: Ht 152.4 cm; Wt 62.6 kg
[2021-08-22 04:10] VITALS: BP 195/104
[~2021-08-22 04:10] MED LIST changes: +ATOR40TA PO; +GLIP5TAB13 PO; +SULF-58 PO
--- NOTE | 2021-08-22 04:10 | NUR ---
pt taken to bed 9 by ems
--- NOTE | 2021-08-22 04:10 | NUR ---
PT LEA ALS. TAKEN TO BED 9
--- NOTE | 2021-08-22 04:20 | NUR ---
Note undone in EDM - 08/22/21 at 0604 by [facility] 56 YO F BIBA WITH C/C OF HYPOGLYCEMIA. PER EMS PT FOUND UNCONCIOUS. BLOOD SUGAR AT 27, IV STARTED AND GIVEN D10 250ML. BS 180. PT A&OX3. RECTAL TEMP 91.5, BEAR HUGGER PLACED ON PT. BLOOD SUGAR RETAKEN 125. ABD IS DISTENDED. ROUND AND HARD TO TOUCH. BOWEL SOUNDS HYPOACTIVE X4. LAST BM JUST NOW. PT REPORTS H/A X1 WEEK 02/17. PT STATES SHE TAKES MEDICATION BUT CANNOT RECALL AT THIS TIME. HX:DM RX:INSULIN NKA
[2021-08-22] MEDS ORDERED: NACL 0.9% 500 ML IV ONE (04:25)
--- NOTE | 2021-08-22 04:25 | NUR ---
PT DOES NOT HAVE TO URINATE AT THIS TIME.
[2021-08-22] MEDS ORDERED: cefTRIAXone 1,000 MG VIAL ONE (04:37)
--- NOTE | 2021-08-22 05:25 | NUR ---
PT DAUGHTER, YESENIA:
[2021-08-22 05:45] LABS: BASOPHILS % (AUTO) 0.4 % (0.0-2.0); EOSINOPHILS % (AUTO) 0.2 % (0.0-4.0); HEMATOCRIT 26.1 % (36-48); HEMOGLOBIN 8.8 g/dL (12.0-16.0); LYMPHOCYTES # (AUTO) 1.5 K/uL (2.5-16.5); LYMPHOCYTES % (AUTO) 14.2 % (20.5-51.1); MEAN CORPUSCULAR HEMOGLOBIN 27 pg (27-31); MEAN CORPUSCULAR HGB CONC 34 g/dL (33-37); MEAN CORPUSCULAR VOLUME 79.4 fL (80-94); MONOCYTES # (AUTO) 0.3 K/uL (0.8-1.0); MONOCYTES % (AUTO) 3.1 % (1.7-9.3); NEUTROPHILS # (AUTO) 8.7 K/uL (1.8-7.7); NEUTROPHILS % (AUTO) 82.1 % (42.2-75.2); PLATELET COUNT (AUTO) 499 K/uL (140-450); RED BLOOD CELL COUNT(AUTO) 3.29 MIL/uL (4.20-5.40); RED CELL DISTRIBUTION WIDTH 14.8 % (11.6-13.7); WHITE BLOOD COUNT (AUTO) 10.6 K/uL (4.8-10.8)
--- NOTE | 2021-08-22 05:57 | NUR ---
ORAL TEMP 97.4.
--- NOTE | 2021-08-22 06:00 | NUR ---
PT AMBULATED TO BATHROOM FOR A BOWEL MOVEMENT. PT UNABLE TO HOLD BOWEL COMPLETELY
--- NOTE | 2021-08-22 06:04 | NUR ---
SPOKE TO YESENIA, UPDATED ON PT'S STATUS. REPORTS PT TAKES METFORMIN , ATROVASTATIN AND AN ANTIBIOTIC FOR AN INFECTION ON HER FOOT. STATES THE PT WAS HERE ON WEDNESDAY FOR HER FOOT.
[2021-08-22 06:12] LABS: ALBUMIN 1.2 g/dL (3.4-5.0); ANION GAP 13.1 (8-16); CARBON DIOXIDE 19.1 mmol/L (21-32); CREATININE 2.5 mg/dL (0.6-1.3); POTASSIUM 4.2 mmol/L (3.5-5.1); TOTAL BILIRUBIN 0.1 mg/dL (0.0-1.0)
--- NOTE | 2021-08-22 06:14 | NUR ---
Vy polanco in ED - 08/22/21 at 0614 by [facility] PT TAKEN TO RAD.
--- NOTE | 2021-08-22 06:14 | NUR ---
PT TAKEN TO CT
--- NOTE | 2021-08-22 06:27 | NUR ---
PT RETURN FROM CT
[2021-08-22] MEDS ORDERED: ATOR10TA PO (06:42)
[2021-08-22] MEDS ORDERED: METF-350 PO (06:42)
[2021-08-22] MEDS ORDERED: DEXTROSE 50% 50 ML SYR IVP ONE ×2 (06:49→06:50)
--- NOTE | 2021-08-22 06:54 | NUR ---
Dr. Aguirre examining patient.
--- NOTE | 2021-08-22 07:03 | NUR ---
PT MOVED TO ER BED 10
[2021-08-22 07:12] LABS: APPEARANCE,URINE CLEAR (CLEAR); BILIRUBIN,URINE NEGATIVE (NEGATIVE); BLOOD, URINE TRACE-I (NEGATIVE); LEUKOCYTE ESTERASE ,URINE NEGATIVE (NEGATIVE); NITRITE, URINE NEGATIVE (NEGATIVE); PH,URINE 6.5 (5.0-9.0); UGLUCOSE TRACE (NEGATIVE)
--- NOTE | 2021-08-22 07:15 | NUR ---
REPORT RECEIVED FROM NABILA CONCEPCION FOR CONTINUITY OF CARE. PT IS A&OX4. IV SITE RT HAND 22 G, AND LT AC 20G, INTACT, PATENT, GOOD BLOOD RETURN. ON BEAR HUGGER, SKIN WARM AND DRY. WOUND NOTED TO RT FOOT. SAFETY PRECAUTIONS IN PLACE. BLOOD SUGAR 133 AT THIS TIME. WILL CONTINUE TO MONITOR.
[2021-08-22 07:37] LABS: COLOR,URINE PINKISH (YELLOW); RBC,URINE 0-5 /HPF (0-5); WBC,URINE 0-5 /HPF (0-5)
[2021-08-22] MEDS ORDERED: OCTREOTIDE ACETATE 100 MCG/ML VIAL SUBQ STA (08:39)
[2021-08-22] MEDS ORDERED: DEXT 5% / NACL 0.9% 500 ML IV ONE ×2 (08:40→09:30)
[2021-08-22] MEDS ORDERED: DEXT 5% / NACL 0.45% 1,000 ML IV ONE (08:40)
--- NOTE | 2021-08-22 09:05 | NUR ---
# 16 FR Coker catheter with 10ml utilizing sterile technique. Immediate return of 30ml PINK TINGED urine noted. Bedside drainage bag placed below level of bladder. Pt tolerated procedure WELL.
[2021-08-22] MEDS: DEXT 5% /NACL 0.9% 1,000 ML IV SCH ×2 (09:30→19:56)
[2021-08-22] MEDS ORDERED: POTASSIUM CHLORIDE 10 MEQ TABER PO PRN (09:30)
[2021-08-22] MEDS ORDERED: HYDROcodone/APAP 7.5/325 MG 1 TAB PO PRN (09:30)
[2021-08-22] MEDS ORDERED: DOCUSATE SODIUM 100 MG GELCAP PO PRN (09:30)
[2021-08-22] MEDS ORDERED: guaiFENesin DM 200/20 MG-10 ML 10 ML UDC PO PRN (09:30)
[2021-08-22] MEDS ORDERED: ONDANSETRON 4 MG/2 ML VIAL IM/IVP PRN (09:30)
[2021-08-22] MEDS ORDERED: ACETAMINOPHEN 325 MG TAB PO PRN (09:30)
[2021-08-22] MEDS ORDERED: ZOLPIDEM 5 MG TAB PO PRN (09:30)
[2021-08-22] MEDS ORDERED: hydrALAZINE 20 MG/ML VIAL IVP PRN (09:35)
--- NOTE | 2021-08-22 09:35 | NUR ---
XRAY AT BEDSIDE
--- NOTE | 2021-08-22 09:50 | NUR ---
RECIEVED CALL FROM PT'S DAUGHTER, UPDATED ON STATUS
[2021-08-22 09:54] LABS: PROTHROMBIN TIME 9.2 secs (10.8-13.4)
[2021-08-22 10:14] LABS: CHOL/HDL RATIO 3.8 (1-4.5); FREE T4 (FREE THYROXINE) 0.87 ng/dL (0.76-1.46); MAGNESIUM 2.3 mg/dL (1.8-2.4); THYROID STIMULATING HORMONE 2.7 uIU/mL (0.34-3.74)
[2021-08-22] MEDS: amLODIPine 5 MG TAB PO SCH (10:21)
--- NOTE | 2021-08-22 11:00 | NUR ---
DR HESTER AT BEDSIDE EXAMINING PT
[2021-08-22] MEDS ORDERED: VANCOMYCIN PER PHARMACY MC PRN (11:35)
--- NOTE | 2021-08-22 12:30 | NUR ---
KEILA WOUND NURSE AT BEDSIDE.
--- NOTE | 2021-08-22 12:37 | NUR ---
Wound assessment done to Right foot and right 4th digit toe with severe desiccated full thickness skin loss to 4th toe/interspace. POC discussed with primary RN with recommendation podiatry consult, and will start with wound care protocol at this time. per primary RN she will let doctor know. Cleanse with soap and water, rinse with NS, apply Adaptic followed by Dry 4x4's and secure with Kerlex González Daily and PRN Soilage. Addendum: 08/22/21 at 1245 by Preston Mooney RN (Grace) Wound size including dorsal foot to 4th toe interspace 5x4x0.8cm, no odor
--- NOTE | 2021-08-22 12:45 | NUR ---
PT PROVIDED WITH LUNCH TRAY
[2021-08-22] MEDS ORDERED: VANCOMYCIN 750 MG in DEXTROSE 5% 250 ML IV SCH (13:00)
--- NOTE | 2021-08-22 15:05 | NUR ---
Patient will be admitted to care of Dr Hughes. Admited to telemetry. Will go to room 126B. Belongings list completed. Report to Sadie CONCEPCION.
[2021-08-22 15:10] VITALS: BP 157/81
[2021-08-22 16:46] LABS: BARBITURATE, URINE NEGATIVE ng/ml (NEG <=200); BENZODIAZEPINE, URINE POSITIVE ng/mL (NEG <=200); CANNABINOID, URINE NEGATIVE ng/mL (NEG <=50); COCAINE, URINE NEGATIVE ng/mL (NEG <=300); OPIATE, URINE NEGATIVE ng/mL (NEG <=2000); PHENCYCLIDINE SCREEN,URINE NEGATIVE ng/mL (NEG <=25)
--- NOTE | 2021-08-22 19:25 | NUR ---
RECEIVED PT FROM DAY SHIFT RN FOR CONTINUITY OF CARE. PT AWAKE, ALERT AND ORIENTED. BENGALI SPEAKING. PT ON ROOM AIR. IVF INFUSING WELL. PT HAS WOUND ON RIGHT FOOT,NO DRAINAGE NOTICED. PT HAS BURNETT CATHETER DRAINING, CLEAR, PINKISH URINE. ALL PRECAUTIONS IN PLACE.CALL LIGHT WITHIN REACH. WILL CONTINUE TO MONITOR.
[2021-08-22 20:00] VITALS: BP 128/74
[2021-08-23] VITALS: BP 151/101
--- NOTE | 2021-08-23 | NUR ---
PT ENDORSED TO DAVID CONCEPCION FOR CONTINUITY OF CARE. PT STABLE.SIGNING OFF
[2021-08-23 04:00] VITALS: BP 143/57
[2021-08-23] MEDS: DEXT 5% /NACL 0.9% 1,000 ML IV SCH ×2 (04:40→15:39)
[2021-08-23 06:12] LABS: ANION GAP 13.4 (8-16); CARBON DIOXIDE 16.8 mmol/L (21-32); CREATININE 2.7 mg/dL (0.6-1.3); POTASSIUM 5.2 mmol/L (3.5-5.1)
[2021-08-23 06:26] LABS: BASOPHILS # (AUTO) 0.1 K/uL (0.00-0.22); BASOPHILS % (AUTO) 0.8 % (0.0-2.0); EOSINOPHILS # (AUTO) 0.1 K/uL (0-0.4); HEMATOCRIT 22.6 % (36-48); HEMOGLOBIN 7.5 g/dL (12.0-16.0); LYMPHOCYTES # (AUTO) 3.5 K/uL (2.5-16.5); LYMPHOCYTES % (AUTO) 34.6 % (20.5-51.1); MEAN CORPUSCULAR HEMOGLOBIN 27 pg (27-31); MEAN CORPUSCULAR HGB CONC 33 g/dL (33-37); MONOCYTES # (AUTO) 0.8 K/uL (0.8-1.0); MONOCYTES % (AUTO) 7.7 % (1.7-9.3); NEUTROPHILS # (AUTO) 5.6 K/uL (1.8-7.7); NEUTROPHILS % (AUTO) 55.9 % (42.2-75.2); PLATELET COUNT (AUTO) 440 K/uL (140-450); RED BLOOD CELL COUNT(AUTO) 2.79 MIL/uL (4.20-5.40)
--- NOTE | 2021-08-23 07:00 | NUR ---
PATIENT HAS BEEN SCREENED AND CATEGORIZED MODERATE NUTRITION RISK. PATIENT WILL BE SEEN WITHIN 3-5 DAYS OF ADMISSION. 08/25/21-08/27/21 SILVANA BRUSH MS, RDN
[2021-08-23 07:08] LABS: T4 (THYROXINE) 5.9 ug/dL (4.5-12.0)
--- NOTE | 2021-08-23 07:20 | NUR ---
PATIENT AWAKE AND ALERT. NO ACUTE DISTRESS NOTED. PATIENT ON ROOM AIR. CALL LIGHT WITHIN REACH. ALL SAFETY MEASURES IN PLACE. WILL CONTINUE TO MONITOR.
--- NOTE | 2021-08-23 07:26 | NUR ---
Handoff with CARLENE Ang. Manuel Levin RN
[2021-08-23 08:00] VITALS: BP 143/57
[2021-08-23] MEDS ORDERED: DEXTROSE 50% 50 ML SYR IVP PRN (08:05)
--- NOTE | 2021-08-23 09:00 | NUR ---
PATIENT SLEEPING. NO ACUTE DISTRESS NOTED. BREATHING EVEN AND UNLABORED. ALL SAFETY MEASURES IN PLACE. CALL LIGHT WITHIN REACH. WILL CONTINUE TO MONITOR.
[2021-08-23] MEDS: ASPIRIN 81 MG TAB.CHEW PO SCH (10:11)
[2021-08-23] MEDS: amLODIPine 5 MG TAB PO SCH (10:11)
[2021-08-23] MEDS: PANTOPRAZOLE 40 MG TABEC PO SCH (10:11)
[2021-08-23] MEDS: ATORVASTATIN 20 MG TAB PO SCH (10:12)
--- NOTE | 2021-08-23 10:14 | NUR ---
PATIENT AWAKE AND ALERT. NO ACUTE DISTRESS NOTED. SCHEDULED MEDICATIONS GIVEN. PATIENT DENIES PAIN AT THIS TIME. ALL SAFETY MEASURES IN PLACE. CALL LIGHT WITHIN REACH. WILL CONTINUE TO MONITOR.
[2021-08-23] MEDS ORDERED: VANCOMYCIN 750 MG in DEXTROSE 5% 250 ML IV SCH (11:00)
[2021-08-23] MEDS: BLOOD GLUCOSE MONITORING 1 DEV DEV FS SCH ×3 (11:30→20:35)
[2021-08-23 12:00] VITALS: BP 147/74
--- NOTE | 2021-08-23 12:39 | NUR ---
PATIENT AWAKE AND ALERT. NO ACUTE DISTRESS NOTED. PATIENT DENIES PAIN AT THIS TIME. ALL SAFETY MEASURES IN PLACE. CALL LIGHT WITHIN REACH. WILL CONTINUE TO MONITOR.
--- NOTE | 2021-08-23 14:44 | NUR ---
PATIENT AWAKE AND ALERT. NO ACUTE DISTRESS NOTED. PATIENT DENIES PAIN AT THIS TIME. CHARGE NURSE INSERTED LEFT HAND 22 G. ALL SAFETY MEASURES IN PLACE. CALL LIGHT WITHIN REACH. WILL CONTINUE TO MONITOR.
--- NOTE | 2021-08-23 15:42 | NUR ---
A AND P MECHANIC AT BEDSIDE.
[2021-08-23 16:00] VITALS: BP 129/75
[2021-08-23] MEDS: INSULIN LISPRO SLIDING SCALE 100 UNITS/ML VIAL SUBQ PRN (16:50)
--- NOTE | 2021-08-23 19:20 | NUR ---
ENDORSED TO SIGNAL MAINTENANCE TECHNICIAN NURSE FOR CONTINUITY OF CARE. PATIENT STABLE.
[2021-08-23 20:00] VITALS: BP 145/58
--- NOTE | 2021-08-23 20:00 | NUR ---
Received bedside report from day shift nurse for continuity of care. Received patient laying in bed. Pt A/A/Ox4, mongolian speaking only. Pt not in any distress and no complains. IVF infusing as ordered. Coker draining light alyssa urine. Right foot wound dressing clean, dry and intact. Fall precaution implemented and instructed to not get out of bed without assistance. Call light within reach. Will continue plan of care and monitoring.
--- NOTE | 2021-08-23 21:30 | NUR ---
Blood sugar checked, 129. No insulin coverage needed and given.
[2021-08-24] VITALS: BP 143/70
--- NOTE | 2021-08-24 | NUR ---
VSS, afebrile, sating 97% RA. No complain of pain at this time. SR on tele monitor, HR 86.
[2021-08-24] MEDS: DEXT 5% /NACL 0.9% 1,000 ML IV SCH ×2 (01:30→04:48)
[2021-08-24 04:00] VITALS: BP 164/74
[2021-08-24] MEDS: BLOOD GLUCOSE MONITORING 1 DEV DEV FS SCH ×4 (05:50→21:08)
--- NOTE | 2021-08-24 05:57 | NUR ---
No acute events throughout the night. Pt stable, not in any distress, and no complains at this time. All needs attended. Will endorsed pt to the oncoming RN for continuity of care.
[2021-08-24 06:15] LABS: ANION GAP 14.9 (8-16); CARBON DIOXIDE 17.5 mmol/L (21-32); CREATININE 2.8 mg/dL (0.6-1.3); POTASSIUM 5.4 mmol/L (3.5-5.1)
[2021-08-24 06:22] LABS: BASOPHILS % (AUTO) 0.2 % (0.0-2.0); EOSINOPHILS # (AUTO) 0.3 K/uL (0-0.4); EOSINOPHILS % (AUTO) 3.7 % (0.0-4.0); HEMATOCRIT 23.4 % (36-48); HEMOGLOBIN 7.8 g/dL (12.0-16.0); LYMPHOCYTES # (AUTO) 2.9 K/uL (2.5-16.5); MEAN CORPUSCULAR HEMOGLOBIN 27 pg (27-31); MEAN CORPUSCULAR HGB CONC 33 g/dL (33-37); MEAN CORPUSCULAR VOLUME 81.4 fL (80-94); MONOCYTES # (AUTO) 0.9 K/uL (0.8-1.0); MONOCYTES % (AUTO) 9.6 % (1.7-9.3); NEUTROPHILS # (AUTO) 5.2 K/uL (1.8-7.7); NEUTROPHILS % (AUTO) 55.5 % (42.2-75.2); PLATELET COUNT (AUTO) 429 K/uL (140-450); RED BLOOD CELL COUNT(AUTO) 2.87 MIL/uL (4.20-5.40); WHITE BLOOD COUNT (AUTO) 9.4 K/uL (4.8-10.8)
--- NOTE | 2021-08-24 07:25 | NUR ---
RECEIVE REPORT FROM FILLER AND TRIMMER NURSE FOR CONTINUITY OF CARE. PATIENT AWAKE AND ALERT. NO ACUTE DISTRESS NOTED. PATIENT ON ROOM AIR. PATIENT DENIES PAIN AT THIS TIME. CALL LIGHT WITHIN REACH. ALL SAFETY MEASURES IN PLACE. WILL CONTINUE TO MONITOR.
[2021-08-24 08:00] VITALS: BP 161/78
[2021-08-24] MEDS: ASPIRIN 81 MG TAB.CHEW PO SCH (08:54)
[2021-08-24] MEDS: ATORVASTATIN 20 MG TAB PO SCH (08:54)
[2021-08-24] MEDS: amLODIPine 5 MG TAB PO SCH (08:55)
[2021-08-24] MEDS: PANTOPRAZOLE 40 MG TABEC PO SCH (08:55)
--- NOTE | 2021-08-24 09:02 | NUR ---
PATIENT AWAKE AND ALERT. NO ACUTE DISTRESS NOTED. PATIENT ON ROOM AIR. PATIENT DENIES PAIN AT THIS TIME. SCHEDULED MEDICATION GIVEN. CALL LIGHT WITHIN REACH. ALL SAFETY MEASURES IN PLACE. WILL CONTINUE TO MONITOR.
--- NOTE | 2021-08-24 10:15 | NUR ---
PATIENT AWAKE AND ALERT. NO ACUTE DISTRESS NOTED. PATIENT ON ROOM AIR. PATIENT DENIES PAIN AT THIS TIME. CALL LIGHT WITHIN REACH. ALL SAFETY MEASURES IN PLACE. WILL CONTINUE TO MONITOR.
[2021-08-24] MEDS ORDERED: SODIUM ZIRCONIUM CYCLOSILICATE 10 GM POWD.PACK PO SCH (11:15)
[2021-08-24 12:00] VITALS: BP 160/68
[2021-08-24] MEDS: INSULIN LISPRO SLIDING SCALE 100 UNITS/ML VIAL SUBQ PRN (12:05)
--- NOTE | 2021-08-24 12:49 | NUR ---
PATIENT SLEEPING. BREATHING EVEN AND UNLABORED. NO ACUTE DISTRESS NOTED. PATIENT ON ROOM AIR. CALL LIGHT WITHIN REACH. ALL SAFETY MEASURES IN PLACE. WILL CONTINUE TO MONITOR.
--- NOTE | 2021-08-24 14:18 | NUR ---
PATIENT AWAKE AND ALERT. NO ACUTE DISTRESS NOTED. PATIENT ON ROOM AIR. PATIENT DENIES PAIN AT THIS TIME. PATIENT BLOOD PRESSURE 132/57, HR 91. CALL LIGHT WITHIN REACH. ALL SAFETY MEASURES IN PLACE. WILL CONTINUE TO MONITOR.
--- NOTE | 2021-08-24 14:30 | NUR ---
PER DR. ZAMAN BEGIN BLADDER TRAINING BEFORE REMOVING BURNETT CATHETER.
[2021-08-24 16:00] VITALS: BP 135/69
--- NOTE | 2021-08-24 16:45 | NUR ---
PATIENT STATE FEELING PRESSURE IN ABDOMEN. UNCLAMPED BURNETT PATIENT HAD [address] ZAMAN NOTIFIED. REQUEST FOR BURNETT TO BE REMOVED.
[2021-08-24 18:36] LABS: ANION GAP 15.2 (8-16); CARBON DIOXIDE 16.3 mmol/L (21-32); CREATININE 2.6 mg/dL (0.6-1.3); POTASSIUM 4.5 mmol/L (3.5-5.1)
--- NOTE | 2021-08-24 19:25 | NUR ---
ENDORSED TO WAREHOUSE PROCESSOR NURSE FOR CONTINUITY OF CARE. PATIENT STABLE.
[2021-08-24 22:34] VITALS: BP 137/76
--- NOTE | 2021-08-25 00:54 | NUR ---
the pateint was admitted for ALOC and hypoglycemia, the pateint has hx of DM and HTN.vitals are stable. breathing is even and unlabored, no complain of pain . . comfort and safetyy measures are provided. bed is in low position
[2021-08-25 04:00] VITALS: BP 121/76
[2021-08-25 06:09] LABS: BASOPHILS % (AUTO) 0.4 % (0.0-2.0); EOSINOPHILS # (AUTO) 0.4 K/uL (0-0.4); EOSINOPHILS % (AUTO) 4.4 % (0.0-4.0); HEMOGLOBIN 7.1 g/dL (12.0-16.0); LYMPHOCYTES # (AUTO) 3.1 K/uL (2.5-16.5); LYMPHOCYTES % (AUTO) 35.2 % (20.5-51.1); MEAN CORPUSCULAR HEMOGLOBIN 27 pg (27-31); MEAN CORPUSCULAR HGB CONC 34 g/dL (33-37); MEAN CORPUSCULAR VOLUME 80.6 fL (80-94); MONOCYTES # (AUTO) 0.7 K/uL (0.8-1.0); MONOCYTES % (AUTO) 7.9 % (1.7-9.3); NEUTROPHILS # (AUTO) 4.5 K/uL (1.8-7.7); NEUTROPHILS % (AUTO) 52.1 % (42.2-75.2); PLATELET COUNT (AUTO) 400 K/uL (140-450); RED BLOOD CELL COUNT(AUTO) 2.61 MIL/uL (4.20-5.40); RED CELL DISTRIBUTION WIDTH 15.1 % (11.6-13.7); WHITE BLOOD COUNT (AUTO) 8.7 K/uL (4.8-10.8)
[2021-08-25 06:28] LABS: CARBON DIOXIDE 19.2 mmol/L (21-32); CREATININE 2.6 mg/dL (0.6-1.3); POTASSIUM 5.2 mmol/L (3.5-5.1)
[2021-08-25] MEDS: BLOOD GLUCOSE MONITORING 1 DEV DEV FS SCH ×4 (06:42→21:00)
--- NOTE | 2021-08-25 07:30 | NUR ---
RECEIVED PT AAOX4. NO SOB NOTED. NO C/O PAIN AT THIS TIME. INSTRUCTED PT TO CALL FOR ASSISTANCE, CALL LIGHT WITHIN REACH, VERBALIZED UNDERSTANDING.
[2021-08-25 08:00] VITALS: BP 165/57
[2021-08-25] MEDS: ASPIRIN 81 MG TAB.CHEW PO SCH (09:07)
[2021-08-25] MEDS: ATORVASTATIN 20 MG TAB PO SCH (09:07)
[2021-08-25] MEDS: PANTOPRAZOLE 40 MG TABEC PO SCH (09:08)
[2021-08-25] MEDS: amLODIPine 5 MG TAB PO SCH (09:08)
[2021-08-25] MEDS ORDERED: SODIUM ZIRCONIUM CYCLOSILICATE 10 GM POWD.PACK PO SCH (09:08)
[2021-08-25] MEDS: INSULIN LANTUS 100 UNITS/ML 10 ML VIAL SUBQ SCH (10:00)
--- NOTE | 2021-08-25 10:05 | NUR ---
IN HOUSE PODIATRY TEAM FOLLOW UP WITH DRESSING CHANGE, DRESSING DCI. POC DISCUSSED WITH PT. WITH WOUND CARE INSTRUCTIONS AND RECOMMENDATIONS, WRITTEN INSTRUCTIONS PER STAFF PHYSICAL THERAPY ASSISTANT PROVIDED AND PT. VERBALIZES UNDERSTANDING. MAY DISCHARGE WOUND CARE SUPPLIES WITH PT. CARLENE URRUTIA TRANSLATED ALL INFORMATION IN HAITIAN. PER STAFF PHYSICAL THERAPY ASSISTANT NOTE: Patient to remain heel weightbearing at all times in postoperative shoe with crutches Crutches and post operative shoe have been ordered. Recommend continuing daily dressing changes with betadine Adaptic, 4x4 gauze, kerlix. Patient may leave dressing intact until follow up appointment with Dr Perrin if necessary. Patient is stable for discharge from podiatric standpoint. Podiatry will continue to follow while patient is in house. Patient to follow up as outpatient with Dr Perrin for wound care and podiatric monitoring. Appointment will be made and patient will be informed of appointment by office staff. Recommend patient be provided with information for vascular surgeon appointment as outpatient.
[2021-08-25] MEDS ORDERED: VANCOMYCIN 750 MG in DEXTROSE 5% 250 ML IV SCH (11:00)
--- NOTE | 2021-08-25 12:30 | NUR ---
AUGUSTUS CALL SAVANNAH SANDERS'S OFFICE AT SPOKE TO YESENIA TO SCHEDULED AN OUTPATIENT PODIATRY APPOINTMENT FOLLOW UP FOR PATIENT ON 08/28/2021 AT 03:30PM AT [address] [facility] [facility] [place] [address]. SW MEET WITH PATIENT TO DISCUSS AND INFORM HER SCHEDULED FOLLOW UP APPOINTMENT WITH PODIATRY ON 08/28/2021 AT 03:30PM. SW PROVIDED PATIENT WITH AN APPOINTMENT NOTE WITH ADDRESS, TIME, DATE, AND DETAIL REMINDERS FOR PATIENT TO FOLLOW UP. PATIENT AGREED TO ATTEND. Addendum: 08/25/21 at 1450 by Tammy Buckley CM DIRECTOR INSURANCE made referral for vascular follow up at [facility] via [employer] referral system. Patient will receive a call when an appointment has been scheduled.
--- NOTE | 2021-08-25 16:00 | NUR ---
PATIENT IS A 56 YEAR OLD FEMALE ADMITTED IN THE [facility]/ED ON 08/22/2021 DUE TO DIABETES, HYPERTENSION AND WITH RIGHT FOOT FOURTH DIGIT ULCER. (PATIENT IS SALVADOREAN SPEAKING ONLY). AUGUSTUS MET WITH PATIENT AT BEDSIDE TO DISCUSS AND GATHER HER COLLATERAL INFORMATION. PATIENT REPORTED LIVING AT HOME WITH HER ULYSSES PATTERSON . PATIENT STATED THAT HER DAUGHTER IS HER EMERGENCY CONTACT AND SHE HAS NO ADVANCE DIRECTIVES PATIENT DECLINED A.D. INF. PACKET PROVIDED BY AUGUSTUS. PATIENT REPORTED NOT HAVING ANY ISSUES GETTING OR TAKING HER MEDICATIONS FROM THE [facility] NEAR HER HOME. PATIENT STATED NOT HAVING OR NEEDING DME AT HOME AND BEEN ACTIVE AND INDEPENDENT TO AMBULATE. PATIENT REPORTED GOING [facility] AND SEEING A DOCTOR THERE WHEN SHE NEEDS TO SEE AN MD. 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 AT [address] [facility] [facility] [address] . PATIENT THANKED THESE POSTULANT AND AGREED TO ATTEND. AUGUSTUS THANK HER FOR HER INF. AND LEFT HER ROOM. AUGUSTUS WILL FOLLOW UP NEEDED.
[2021-08-25 16:25] LABS: BASOPHILS % (AUTO) 0.5 % (0.0-2.0); EOSINOPHILS # (AUTO) 0.4 K/uL (0-0.4); EOSINOPHILS % (AUTO) 4.4 % (0.0-4.0); HEMOGLOBIN 8.2 g/dL (12.0-16.0); LYMPHOCYTES # (AUTO) 2.6 K/uL (2.5-16.5); LYMPHOCYTES % (AUTO) 30.1 % (20.5-51.1); MEAN CORPUSCULAR HEMOGLOBIN 27 pg (27-31); MEAN CORPUSCULAR HGB CONC 34 g/dL (33-37); MEAN CORPUSCULAR VOLUME 79.7 fL (80-94); MONOCYTES # (AUTO) 0.6 K/uL (0.8-1.0); NEUTROPHILS # (AUTO) 5.1 K/uL (1.8-7.7); PLATELET COUNT (AUTO) 434 K/uL (140-450); RED BLOOD CELL COUNT(AUTO) 3.01 MIL/uL (4.20-5.40); RED CELL DISTRIBUTION WIDTH 14.9 % (11.6-13.7); WHITE BLOOD COUNT (AUTO) 8.7 K/uL (4.8-10.8)
[2021-08-25 16:33] LABS: ANION GAP 14.3 (8-16); CARBON DIOXIDE 18.6 mmol/L (21-32); CREATININE 2.5 mg/dL (0.6-1.3); POTASSIUM 4.9 mmol/L (3.5-5.1)
--- NOTE | 2021-08-25 16:50 | NUR ---
pt resting. no sob noted. no signs of pain. endorsed to Feliz-RN for continuity of care.
--- NOTE | 2021-08-25 16:55 | NUR ---
RECEIVED REPORT FROM APARNA CONCEPCION. PT STABLE. NO S/S OF DISTRESS. BREATHING SYMMETRICAL. CALL LIGHT IN REACH. ALL SAFETY MEASURES IN PLACE.
--- NOTE | 2021-08-25 17:20 | NUR ---
PT INFORMED OF LAB TESTS NEEDED. PT PROVIDED HAT TO COLLECT. PT REQUESTED STOOL SOFTENER TO EASE PASSAGE. CALL LIGHT IN REACH. ALL SAFETY MEASURES IN PLACE
--- NOTE | 2021-08-25 17:43 | NUR ---
REASSESSED PT BP WHILE SITTING. PT BP 159/70. PT STABLE. NO S/S/ OF DISTRESS. DENIES PAIN. CLL LIGHT IN REACH. ALL SAFETY MEASURES IN PLACE
[2021-08-25 18:00] VITALS: BP 159/70
--- NOTE | 2021-08-25 19:34 | NUR ---
ENDORSED PT TO EDITORIAL CLERK NURSE. PT STABLE. NO S/S OF DISTRESS. BREATHING SYMMETRICAL. CALL LIGHT IN REACH. ALL SAFETY MEASURES IN PLACE.
--- NOTE | 2021-08-25 23:15 | NUR ---
the patient vitals are stable .she sleeps comfortable in her bed. breathing is even and unlabored. comfort and safety measures are provided. right foot dressing is clean and instact . bed is low position .
[2021-08-26] VITALS: BP 134/69
--- NOTE | 2021-08-26 00:40 | NUR ---
ASSUMED CARE OF THE PATIENT FROM CARLENE SUAZO. RECEIVED PATIENT ASLEEP ,EASY TO AROUSE. PATIENT NOT IN ANY DISTRESS AND NO COMPLAIN AT THIS TIME. RIGHT FOOT DRESSING C/D/I. CALL LIGHT WITHIN REACH. WILL CONTINUE POC.
--- NOTE | 2021-08-26 03:00 | NUR ---
PATIENT ASLEEP AT THIS TIME. VISIBLE CHEST RISE AND FALL NOTED. NOT IN ANY DISTRESS. SAFETY MEASURES IN PLACED. CALL LIGHT WITHIN REACH.
[2021-08-26 04:00] VITALS: BP 122/75
[2021-08-26 05:15] VITALS: BP 134/69
--- NOTE | 2021-08-26 06:00 | NUR ---
NO ACUTE EVENT THROUGHOUT THE NIGHT. PATIENT NOT IN ANY DISTRESS AND NO COMPLAIN AT THIS TIME. ALL NEEDS ATTENDED. CALL LIGHT WITHIN REACH. WILL ENDORSE THE PATIENT TO THE ONCOMING RN FOR CONTINUITY OF CARE.
[2021-08-26] MEDS: BLOOD GLUCOSE MONITORING 1 DEV DEV FS SCH ×2 (06:09→12:24)
[2021-08-26 06:10] LABS: ANION GAP 13.5 (8-16); CARBON DIOXIDE 19.7 mmol/L (21-32); CREATININE 2.5 mg/dL (0.6-1.3); POTASSIUM 5.2 mmol/L (3.5-5.1)
[2021-08-26 06:12] LABS: BASOPHILS % (AUTO) 0.3 % (0.0-2.0); EOSINOPHILS # (AUTO) 0.4 K/uL (0-0.4); EOSINOPHILS % (AUTO) 4.4 % (0.0-4.0); HEMOGLOBIN 7.6 g/dL (12.0-16.0); LYMPHOCYTES # (AUTO) 2.9 K/uL (2.5-16.5); LYMPHOCYTES % (AUTO) 32.3 % (20.5-51.1); MEAN CORPUSCULAR HEMOGLOBIN 28 pg (27-31); MEAN CORPUSCULAR HGB CONC 34 g/dL (33-37); MEAN CORPUSCULAR VOLUME 80.2 fL (80-94); MONOCYTES # (AUTO) 0.7 K/uL (0.8-1.0); MONOCYTES % (AUTO) 7.8 % (1.7-9.3); NEUTROPHILS # (AUTO) 4.9 K/uL (1.8-7.7); NEUTROPHILS % (AUTO) 55.2 % (42.2-75.2); PLATELET COUNT (AUTO) 405 K/uL (140-450); RED BLOOD CELL COUNT(AUTO) 2.74 MIL/uL (4.20-5.40); WHITE BLOOD COUNT (AUTO) 8.9 K/uL (4.8-10.8)
--- NOTE | 2021-08-26 07:30 | NUR ---
RECEIVED PT AAOX4. NO SOB NOTED. NO C/O PAIN AT THIS TIME. RT FOOT ELEVATED WITH PILLOW, DRESSING CLEAN DRY AND INTACT, PT ON WEIGHT BEARING TOLERATED ON THE RLE, POST OP SHOE PROVIDED. INSTRUCTED PT TO CALL FOR ASSISTANCE, CALL LIGHT WITHIN REACH, VERBALIZED UNDERSTANDING.
[2021-08-26 08:00] VITALS: BP 156/71
[2021-08-26] MEDS: amLODIPine 5 MG TAB PO SCH (08:44)
[2021-08-26] MEDS: ATORVASTATIN 20 MG TAB PO SCH (08:44)
[2021-08-26] MEDS: PANTOPRAZOLE 40 MG TABEC PO SCH (08:44)
[2021-08-26] MEDS: INSULIN LANTUS 100 UNITS/ML 10 ML VIAL SUBQ SCH (09:00)
[2021-08-26] MEDS: ASPIRIN 81 MG TAB.CHEW PO SCH (09:17)
[2021-08-26] MEDS ORDERED: SODIUM ZIRCONIUM CYCLOSILICATE 10 GM POWD.PACK PO SCH (11:00)
[2021-08-26] MEDS ORDERED: CIPR500T4 PO (11:41)
[2021-08-26] MEDS ORDERED: FLO.1 PO (11:41)
[2021-08-26] MEDS ORDERED: LACT10CA PO (11:41)
[2021-08-26] MEDS ORDERED: LANTUS SUBQ (11:41)
[2021-08-26] MEDS ORDERED: CLIN300C2 PO (11:41)
--- NOTE | 2021-08-26 12:00 | NUR ---
PT RESTING. NO SOB NOTED. NO COMPLAINTS MADE. ENDORSED TO KIMBERLY FOR CONTINUITY OF CARE.
--- NOTE | 2021-08-26 12:15 | NUR ---
RECEIVE REPORT FROM APARNA CONCEPCION FOR CONTINUITY OF PATIENT CARE.
[2021-08-26] MEDS: INSULIN LISPRO SLIDING SCALE 100 UNITS/ML VIAL SUBQ PRN (12:54)
--- NOTE | 2021-08-26 16:55 | NUR ---
PATIENT AWAKE AND ALERT. NO ACUTE DISTRESS NOTED. PATIENT VS STABLE. PATIENT DENIES PAIN AT THIS TIME. ALL DISCHARGE INFORMATION GIVEN. PATIENT VERBALIZE UNDERSTANDING. PATIENT STATE HAVING NO QUESTIONS. WRISTBAND AND IV REMOVED. CATHETER INTACT. PATIENT TOOK ALL PERSONAL BELONGING. PATIENT WHEELED TO FRONT LOBBY BY NEWS AGENT.
== END 2021-08-26 16:55 | disposition home or self-care (01) | DRG 380 ==
LOC: MED 04:10 → MMU 09:31
PROVIDERS: ADMIT Family Medicine; ATTEND Family Medicine
PROC: 3E10X8Z Irrigation of Skin and Mucous Membranes using Irrigating Substance (ICD-10-PCS; principal; 2021-08-23)
DX: E11.649 Type 2 diabetes mellitus with hypoglycemia without coma (principal); L97.519 Non-pressure chronic ulcer of other part of right foot with unspecified severity; N17.0 Acute kidney failure with tubular necrosis; G93.41 Metabolic encephalopathy; I50.9 Heart failure, unspecified; I13.0 Hypertensive heart and chronic kidney disease with heart failure and stage 1 through stage 4 chronic kidney disease, or unspecified chronic kidney disease; D64.9 Anemia, unspecified; E11.21 Type 2 diabetes mellitus with diabetic nephropathy; L03.115 Cellulitis of right lower limb; N13.30 Unspecified hydronephrosis; E11.42 Type 2 diabetes mellitus with diabetic polyneuropathy; E11.621 Type 2 diabetes mellitus with foot ulcer; E11.51 Type 2 diabetes mellitus with diabetic peripheral angiopathy without gangrene; I25.10 Atherosclerotic heart disease of native coronary artery without angina pectoris; E87.6 Hypokalemia; E11.22 Type 2 diabetes mellitus with diabetic chronic kidney disease; N18.9 Chronic kidney disease, unspecified; K42.9 Umbilical hernia without obstruction or gangrene; E78.5 Hyperlipidemia, unspecified; E86.0 Dehydration; I16.1 Hypertensive emergency; Z20.822 Contact with and (suspected) exposure to COVID-19; Z79.82 Long term (current) use of aspirin; Z79.84 Long term (current) use of oral hypoglycemic drugs; Z79.899 Other long term (current) drug therapy; Z56.0 Unemployment, unspecified
CPT/HCPCS: 36415; 70450; 71045; 71250; 73630; 76770; 80048; 80053; 80202; 80305; 81001; 82150; 82948; 83036; 83605; 83690; 83735; 83880; 84100; 84436; 84439; 84443; 84479; 84484; 85025; 85610; 85651; 85730; 86140; 87040; 87070; 87075; 87081; 87086; 87205; 87804; 93005; 93925; 96365; 96372; 96375; 99291; J0696; J1815; J2354; J3370; J7060; Q0092